=== PATIENT | female | born 1975 | race Caucasian/White ===

== ENCOUNTER 2020-01-19 01:45 | Emergency (ER) | payer SELFPAY ==
[~2020-01-19] VITALS: Ht 165.1 cm; Wt 52.3 kg
--- NOTE | 2020-01-19 02:34 | PHYS DOC ---
Past Medical History Past Medical History: Migraines, Other Additional Past Medical Histor: LEFT BREAST CA Past Surgical History: Appendectomy, Cholecystectomy, Hysterectomy Additional Past Surgical Histo: LEFT BREAST PARTIAL REMOVAL Smoking Status: Current Every Day Smoker Alcohol Use: Occasionally Additional Information: DRINKS WINE EVERY NIGHT ABOUT 2 GLASSES. General Adult EDM: Chief Complaint: ABDOMINAL PAIN HPI: HPI: Patient is a 44 year old female presents with a chief complaint of lower abdominal pain x5 days. Patient states over the last 3 days she has had diarrhea. Patient has a past surgical history of cholecystectomy appendectomy and hysterectomy. Patient has no associated nausea or vomiting. Review of Systems: Review of Systems: Constitutional: Denies fever or chills. [] Eyes: Denies change in visual acuity. [] HENT: Denies nasal congestion or sore throat. [] Respiratory: Denies cough or shortness of breath. [] Cardiovascular: Denies chest pain or edema. [] GI: Positive abdominal pain positive diarrhea : Denies dysuria. [] Musculoskeletal: Denies back pain or joint pain. [] Integument: Denies rash. [] Neurologic: Denies headache, focal weakness or sensory changes. [] Endocrine: Denies polyuria or polydipsia. [] Lymphatic: Denies swollen glands. [] Psychiatric: Denies depression or anxiety. [] Heart Score: Risk Factors: Risk Factors: DM, Current or recent (<one month) smoker, HTN, HLP, family his tory of CAD, obesity. Risk Scores: Score 0 - 3: 2.5% MACE over next 6 weeks - Discharge Home Score 4 - 6: 20.3% MACE over next 6 weeks - Admit for Clinical Observation Score 7 - 10: 72.7% MACE over next 6 weeks - Early Invasive Strategies Allergies: Allergies: Allergies Coded Allergies Type Severity Reaction Last Updated Verified fentanyl Allergy Intermediate Nausea and Vomiting 01/19/20 Yes morphine Allergy Intermediate Palpitations 01/19/20 Yes Penicillins Allergy Mild Swelling 01/19/20 Yes Sulfa (Sulfonamide Antibiotics) Allergy Mild Hives 01/19/20 Yes codeine Allergy Mild Hives 01/19/20 Yes Physical Exam: PE: Constitutional: Well developed, well nourished, no acute distress, non-toxic appearance. [] HENT: Normocephalic, atraumatic, bilateral external ears normal, oropharynx moist, no oral exudates, nose normal. [] Eyes: PERRLA, EOMI, conjunctiva normal, no discharge. [] Neck: Normal range of motion, no tenderness, supple, no stridor. [] Cardiovascular:Heart rate regular rhythm, no murmur [] Lungs & Thorax: Bilateral breath sounds clear to auscultation [] Abdomen: Bowel sounds normal, soft, no tenderness, no masses, no pulsatile masses. [] Skin: Warm, dry, no erythema, no rash. [] Back: No tenderness, no CVA tenderness. [] Extremities: No tenderness, no cyanosis, no clubbing, ROM intact, no edema. [] Neurologic: Alert and oriented X 3, normal motor function, normal sensory function, no focal deficits noted. [] Psychologic: Affect normal, judgement normal, mood normal. [] Current Patient Data: Vital Signs: Vital Signs Date Time Temp Pulse Resp B/P (MAP) Pulse Ox O2 Delivery O2 Flow Rate FiO2 01/19/20 01:55 98.0 77 16 134/61 (85) 99 Room Air 98.0 EKG: EKG: [] Radiology/Procedures: Radiology/Procedures: [] Impression: Diverticulosis without diverticulitis in the sigmoid colon. 3.7 cm cyst in the right adnexa probably ovarian with a small amount of free fluid in the right pelvic cul-de-sac. Course & Med Decision Making: Course & Med Decision Making Pertinent Labs and Imaging studies reviewed. (See chart for details) []Diverticulosis without diverticulitis in the sigmoid colon. 3.7 cm cyst in the right adnexa probably ovarian with a small amount of free fluid in the right pelvic cul-de-sac. Treated with toradol and dilaudid. Pain improved post treatment. Patient will be discharged home with norco. Patient to return to ER if symptoms persist or get worse. Dragon Disclaimer: Megathread Disclaimer: This electronic medical record was generated, in whole or in part, using a voice recognition dictation system. Departure Departure Impression: Primary Impression: Abdominal pain Additional Impressions: Ovarian cyst Diarrhea Disposition: HOME, SELF-CARE Condition: STABLE Referrals: NO PCP (PCP) LÓPEZ STEVENSON Jr, MD Patient Instructions: Abdominal Migraine, Diarrhea, Ovarian Cyst Scripts Hydrocodone/Apap 5-325 (NORCO 5-325 TABLET) 1 Each Tablet 1 TAB PO Q4-6HRS, #20 TAB Prov: KEISHA JIMENEZ DO 01/19/20 Justicifation of Admission Dx: Justifications for Admission: Justification of Admission Dx: N/A KEISHA JIMENEZ DO Jan 19, 2020 02:34
[2020-01-19 02:53] LABS: BILIRUBIN,URINE NEGATIVE (NEG); CLARITY,URINE CLEAR; COLOR,URINE YELLOW; NITRITE,URINE NEGATIVE (NEG); PH,URINE 6.5 (<5.0-8.0); PROTEIN,URINE NEGATIVE (NEG-TRACE); UROBILINOGEN,URINE 0.2 mg/dL (0.2 mg/dL)
[2020-01-19 02:53] LABS: BASO # 0.1 x10^3/uL (0.0-0.2); BASO % 1 % (0-3); EOS # 0.3 x10^3/uL (0.0-0.7); EOS % 4 % (0-3); HEMATOCRIT 54.9 % (36.0-47.0); HEMOGLOBIN 18.9 g/dL (12.0-15.5); LYMPH # 2.4 x10^3/uL (1.0-4.8); LYMPH % 32 % (24-48); MEAN CORPUSCULAR HEMOGLOBIN 33 pg (25-35); MEAN CORPUSCULAR HGB CONC 34 g/dL (31-37); MEAN CORPUSCULAR VOLUME 94 fL (79-100); MONO # 0.8 x10^3/uL (0.0-1.1); MONO % 10 % (0-9); NEUT # 4.1 x10^3/uL (1.8-7.7); NEUT % 54 % (31-73); PLATELET COUNT 232 x10^3/uL (140-400); RED BLOOD COUNT 5.82 x10^6/uL (3.50-5.40); RED CELL DISTRIBUTION WIDTH 14.6 % (11.5-14.5); WHITE BLOOD COUNT 7.7 x10^3/uL (4.0-11.0)
[2020-01-19 02:58] LABS: CALCIUM 9.6 mg/dL (8.5-10.1); CREATININE 0.8 mg/dL (0.6-1.0); GFR 78.7; POTASSIUM 3.5 mmol/L (3.5-5.1)
[2020-01-19 02:59] LABS: BACTERIA,URINE FEW /HPF (0-FEW); SQUAMOUS EPITHELIAL CELL,UR MANY /LPF; WBC,URINE OCC /HPF (0-4)
[2020-01-19] MEDS ORDERED: KETOROLAC 30 MG/ML VIAL. IVP ONE (03:00)
[2020-01-19 03:03] LABS: ALBUMIN 3.6 g/dL (3.4-5.0); ALBUMIN/GLOBULIN RATIO 1.1 (1.0-1.7); TOTAL BILIRUBIN 0.6 mg/dL (0.2-1.0); TOTAL PROTEIN 6.9 g/dL (6.4-8.2)
[2020-01-19] MEDS ORDERED: CONTRAST GIVEN. MC PRN (03:30)
[2020-01-19] MEDS ORDERED: IOHEXOL 300 MG/ML 100ML VIAL. IV ONE (04:00)
[2020-01-19 04:30] VITALS: BP 118/71
[2020-01-19] MEDS ORDERED: HYDROmorphone 2 MG/ML VIAL IVP ONE (04:30)
--- NOTE | 2020-01-19 04:33 | RAD ---
CT abdomen and pelvis with contrast: Reason for examination: Abdominal pain for 7 days. Diarrhea for 3 days. Helical images were obtained through the abdomen and pelvis with intravenous administration of 75 cc Omnipaque 300. Reconstruction was performed in sagittal and coronal planes. Exposure: One or more of the following individualized dose reduction techniques were utilized for this examination: 1. Automated exposure control 2. Adjustment of the mA and/or kV according to patient size 3. Use of iterative reconstruction technique. The lung bases are clear. The heart size is normal with no pericardial effusion. No focal abnormalities are seen at the liver, spleen, adrenal glands or pancreas. Gallbladder surgically absent. The abdominal aorta and inferior vena cava show no acute abnormalities. There is diverticulosis in the sigmoid colon without diverticulitis. There is no evidence of colitis. The appendix is surgically absent. The small intestinal tract shows no abnormal dilatation, wall thickening or obstruction. The stomach is not distended. The kidneys show no renal masses, renal calculi, hydronephrosis or evidence of obstructive uropathy. No abnormality seen at the bladder. The uterus appears to be absent but the right ovary appears to be present and contains a 3.7 cm cyst. There is a small amount of free fluid in the right pelvic cul-de-sac. No acute bony abnormalities are seen. IMPRESSION: Diverticulosis without diverticulitis in the sigmoid colon. 3.7 cm cyst in the right adnexa probably ovarian with a small amount of free fluid in the right pelvic cul-de-sac. Electronically signed by: Vi Adams MD (01/19/2020 4:30 AM) [facility]
[2020-01-19] MEDS ORDERED: HYDR-3164 PO (04:40)
== END 2020-01-19 04:58 | disposition home or self-care (01) ==
LOC: ER 01:45
DX: N83.291 Other ovarian cyst, right side (principal); R10.31 Right lower quadrant pain; R19.7 Diarrhea, unspecified; G43.909 Migraine, unspecified, not intractable, without status migrainosus; F17.200 Nicotine dependence, unspecified, uncomplicated; F10.10 Alcohol abuse, uncomplicated; Z90.89 Acquired absence of other organs; Z90.49 Acquired absence of other specified parts of digestive tract; Z90.710 Acquired absence of both cervix and uterus; Z98.890 Other specified postprocedural states; Z88.0 Allergy status to penicillin; Z88.2 Allergy status to sulfonamides; Z88.5 Allergy status to narcotic agent; Z88.6 Allergy status to analgesic agent; Z88.8 Allergy status to other drugs, medicaments and biological substances
CPT/HCPCS: 36415; 74177; 80053; 81001; 85025; 96374; 96375; 99285; J1170; J1885; Q9967

== ENCOUNTER 2020-05-05 11:14 | Emergency (ER) | payer SELFPAY ==
[~2020-05-05] VITALS: Ht 167.6 cm; Wt 54.8 kg
[~2020-05-05 11:14] MED LIST: HYDR-3164 PO
[2020-05-05] MEDS ORDERED: LIDOCAINE 2% JELLY 6ML IN APPLICATOR. MM ONE (11:45)
[2020-05-05] MEDS ORDERED: KETOROLAC 60 MG/2 ML VIAL. IM ONE (11:45)
[2020-05-05] MEDS ORDERED: methylPREDNISolone SOD SUCC PF 125 MG/2 ML VIAL. IM ONE (11:45)
[2020-05-05] MEDS ORDERED: CLINDAMYCIN HCL 150 MG CAPSULE. PO ONE (11:45)
[2020-05-05] MEDS ORDERED: NAPR-682 PO (13:18)
[2020-05-05] MEDS ORDERED: CLIN150C15 PO (13:18)
--- NOTE | 2020-05-05 13:19 | PHYS DOC ---
Past Medical History Past Medical History: Cancer, Migraines, Other Additional Past Medical Histor: LEFT BREAST CA Past Surgical History: Appendectomy, Cholecystectomy, Hysterectomy, Tonsillectomy Additional Past Surgical Histo: LEFT BREAST PARTIAL REMOVAL Smoking Status: Current Every Day Smoker Additional Information: 04/25 ppd Alcohol Use: None General Adult EDM: Chief Complaint: DENTAL PROBLEM HPI: HPI: Patient is a 44 year old female presented to ER for evaluation of left lower jaw swelling and pain for several days. Patient was seen by her dentist this morning, diagnosed with dental abscess, prescribed a Z-Eb because she is allergic to penicillin. Patient went home, noted that her swelling get worse so she called her dentist who told to come to ER for evaluation. Review of Systems: Review of Systems: Constitutional: Denies fever or chills. [] Eyes: Denies change in visual acuity. [] HENT: Denies nasal congestion or sore throat. positive for left lower jaw swelling and dental pain. Respiratory: Denies cough or shortness of breath. [] Cardiovascular: Denies chest pain or edema. [] GI: Denies abdominal pain, nausea, vomiting, bloody stools or diarrhea. [] : Denies dysuria. [] Musculoskeletal: Denies back pain or joint pain. [] Integument: Denies rash. [] Neurologic: Denies headache, focal weakness or sensory changes. [] Endocrine: Denies polyuria or polydipsia. [] Lymphatic: Denies swollen glands. [] Psychiatric: Denies depression or anxiety. [] Heart Score: Risk Factors: Risk Factors: DM, Current or recent (<one month) smoker, HTN, HLP, family history of CAD, obesity. Risk Scores: Score 0 - 3: 2.5% MACE over next 6 weeks - Discharge Home Score 4 - 6: 20.3% MACE over next 6 weeks - Admit for Clinical Observation Score 7 - 10: 72.7% MACE over next 6 weeks - Early Invasive Strategies Current Medications: Current Medications Medications (Trade) Dose Ordered Sig/Nick Start Time Stop Time Status Last Admin Dose Admin Clindamycin HCl (Cleocin) 300 mg 1X ONCE 05/05/20 11:45 05/05/20 11:48 DC 05/05/20 11:53 300 MG Ketorolac Tromethamine (Toradol Im) 60 mg 1X ONCE 05/05/20 11:45 05/05/20 11:48 DC 05/05/20 11:55 60 MG Lidocaine HCl (Glydo (Lidocaine) Jelly) 1 wyatt 1X ONCE 05/05/20 11:45 05/05/20 11:48 DC 05/05/20 11:58 1 WYATT Methylprednisolone Sodium Succinate (SOLU-Medrol 125MG VIAL) 125 mg 1X ONCE 05/05/20 11:45 05/05/20 11:48 DC 05/05/20 11:58 125 MG Allergies: Allergies: Allergies Coded Allergies Type Severity Reaction Last Updated Verified Penicillins Allergy Intermediate Swelling 05/05/20 Yes Sulfa (Sulfonamide Antibiotics) Allergy Intermediate Hives 05/05/20 Yes codeine Allergy Intermediate Hives 05/05/20 Yes fentanyl Allergy Intermediate Nausea and Vomiting 05/05/20 Yes morphine Allergy Intermediate Palpitations 05/05/20 Yes Physical Exam: PE: Constitutional: Well developed, well nourished, no acute distress, non-toxic appearance. [] HENT: Normocephalic, atraumatic, bilateral external ears normal, oropharynx moist, no oral exudates, nose normal. LEFT LOWER JAW SWELLING, THERE IS DENTAL DECAY ON LEFT LOWER JAW AREA, MISSING LEFT LOWER 2ND MOLAR. There is tender indurated area at the gumline of 1st molar, left lower. NO TRISMUS. PATIENT CAN SWALLOW WITHOUT ANY PROBLEM, TALKING WITHOUT ANY PROBLEM. Eyes: PERRLA, EOMI, conjunctiva normal, no discharge. [] Neck: Normal range of motion, no tenderness, supple, no stridor. [] Cardiovascular:Heart rate regular rhythm, no murmur [] Lungs & Thorax: Bilateral breath sounds clear to auscultation [] Abdomen: Bowel sounds normal, soft, no tenderness, no masses, no pulsatile masses. [] Skin: Warm, dry, no erythema, no rash. [] Back: No tenderness, no CVA tenderness. [] Extremities: No tenderness, no cyanosis, no clubbing, ROM intact, no edema. [] Neurologic: Alert and oriented X 3, normal motor function, normal sensory function, no focal deficits noted. [] Psychologic: Affect normal, judgement normal, mood normal. [] Current Patient Data: Vital Signs: Vital Signs Date Time Temp Pulse Resp B/P (MAP) Pulse Ox O2 Delivery O2 Flow Rate FiO2 05/05/20 11:23 98.0 83 18 144/75 (98) 99 Room Air 98.0 EKG: EKG: [] Radiology/Procedures: Radiology/Procedures: [] Course & Med Decision Making: Course & Med Decision Making Pertinent Labs and Imaging studies reviewed. (See chart for details) The left lower gumline area on the left lower 1st molar was anesthesized with lidocaine jelly and injected 1% plain lidocaine 2 ml, an 18 gauge needle was used to aspirate small amount of whitish purulent material. Patient tolerated procedure well. she will be discharged home with clindamycin, anaprox, follow up with her dentist this week. Dragon Disclaimer: VeedMe Disclaimer: This electronic medical record was generated, in whole or in part, using a voice recognition dictation system. Departure Departure Impression: Primary Impression: Dental abscess Disposition: 01 DC HOME SELF CARE/HOMELESS Condition: IMPROVED Referrals: NO PCP (PCP) Please follow up with your dentist as scheduled Patient Instructions: Dental Abscess Additional Instructions: Thank you for visiting our Emergency Department. We appreciate you trusting us with your care. If any additional problems come up don't hesitate to return to visit us. Please follow up with your primary care provider so they can plan additional care if needed and know about the problem that you had. If symptoms worsen come back to the Emergency Department. Any concerning symptoms that start such as chest pain, shortness of air, weakness or numbness on one side of the body, running high fevers or any other concerning symptoms return to the ER. TAKE 25 MG OF BENADRYL EVERY 6 HOURS NEEDED FOR FACIAL SWELLING. Scripts Naproxen Sodium (ANAPROX DS) 550 Mg Tablet 1 TAB PO BID PRN for PAIN for 15 Days, #30 TAB 0 Refills Prov: BRAD FARIAS DO 05/05/20 Clindamycin Hcl (CLINDAMYCIN HCL) 150 Mg Capsule 300 MG PO QID for 7 Days, #56 CAP Prov: BRAD FARIAS DO 05/05/20 BRAD FARIAS DO May 05, 2020 13:19
[2020-05-05 13:31] VITALS: BP 137/58
== END 2020-05-05 13:31 | disposition home or self-care (01) ==
LOC: ER 11:14
DX: K04.7 Periapical abscess without sinus (principal); R68.84 Jaw pain; R60.0 Localized edema; G43.909 Migraine, unspecified, not intractable, without status migrainosus; F17.200 Nicotine dependence, unspecified, uncomplicated; Z85.3 Personal history of malignant neoplasm of breast; Z90.89 Acquired absence of other organs; Z90.710 Acquired absence of both cervix and uterus; Z90.49 Acquired absence of other specified parts of digestive tract; Z98.890 Other specified postprocedural states; Z88.0 Allergy status to penicillin; Z88.2 Allergy status to sulfonamides; Z88.5 Allergy status to narcotic agent; Z88.6 Allergy status to analgesic agent; Z88.8 Allergy status to other drugs, medicaments and biological substances
CPT/HCPCS: 41800; 96372; 99284; J1885; J2930

== ENCOUNTER 2021-03-25 16:16 | Emergency (ER) | payer OTHER ==
[~2021-03-25] VITALS: Ht 160 cm; Wt 55.7 kg
[~2021-03-25 16:16] MED LIST changes: +CLIN150C16 PO; +NAPR-682 PO
[2021-03-25 17:42] VITALS: BP 147/64
[2021-03-25 18:12] LABS: BASO # 0.1 x10^3/uL (0.0-0.2); BASO % 1 % (0-3); EOS # 0.2 x10^3/uL (0.0-0.7); EOS % 3 % (0-3); HEMATOCRIT 49.4 % (36.0-47.0); HEMOGLOBIN 16.8 g/dL (12.0-15.5); LYMPH % 27 % (24-48); MEAN CORPUSCULAR HEMOGLOBIN 33 pg (25-35); MEAN CORPUSCULAR HGB CONC 34 g/dL (31-37); MEAN CORPUSCULAR VOLUME 96 fL (79-100); MONO # 0.7 x10^3/uL (0.0-1.1); MONO % 10 % (0-9); NEUT # 4.3 x10^3/uL (1.8-7.7); NEUT % 59 % (31-73); PLATELET COUNT 243 x10^3/uL (140-400); RED BLOOD COUNT 5.14 x10^6/uL (3.50-5.40); RED CELL DISTRIBUTION WIDTH 14.1 % (11.5-14.5); WHITE BLOOD COUNT 7.4 x10^3/uL (4.0-11.0)
[2021-03-25 18:22] LABS: CALCIUM 8.6 mg/dL (8.5-10.1); CREATININE 0.8 mg/dL (0.6-1.0); GFR 78.3; POTASSIUM 3.7 mmol/L (3.5-5.1)
[2021-03-25 18:25] LABS: BILIRUBIN,URINE NEGATIVE (NEG); CLARITY,URINE CLEAR; COLOR,URINE YELLOW; NITRITE,URINE NEGATIVE (NEG); PH,URINE 6.5 (<5.0-8.0); PROTEIN,URINE NEGATIVE (NEG-TRACE); UROBILINOGEN,URINE 0.2 mg/dL (0.2 mg/dL)
[2021-03-25 18:28] LABS: ALBUMIN 3.9 g/dL (3.4-5.0); ALBUMIN/GLOBULIN RATIO 1.3 (1.0-1.7); TOTAL BILIRUBIN 0.6 mg/dL (0.2-1.0); TOTAL PROTEIN 6.8 g/dL (6.4-8.2)
[2021-03-25 18:30] LABS: BACTERIA,URINE FEW /HPF (0-FEW); RBC,URINE 0 /HPF (0-2); WBC,URINE OCC /HPF (0-4)
--- NOTE | 2021-03-25 18:44 | PHYS DOC ---
Past Medical History Past Medical History: Cancer, Migraines, Other Additional Past Medical Histor: LEFT BREAST CA Past Surgical History: Appendectomy, Cholecystectomy, Hysterectomy, Tonsillectomy Additional Past Surgical Histo: LEFT BREAST PARTIAL REMOVAL Smoking Status: Current Every Day Smoker Alcohol Use: Heavy Additional Information: DRINKS WINE AT NIGHT Drug Use: None General Adult EDM: Chief Complaint: FLU SYMPTOM HPI: HPI: Patient is a 45-year-old female that presents today with epigastric pain. Patient states over the last 2 days her pain in the epigastric area has become increasing she said today that she has had multiple bouts of nausea and vomiting she has been unable to keep fluids down. Patient states she called her primary care physician her primary Care physician advised her to come to the emergency department for further evaluation. Patient states that over the last 2 days she has had some chills associated with the epigastric pain, patient denies shortness of air or diaphoresis. Review of Systems: Review of Systems: Constitutional: Denies fever or chills. [] Eyes: Denies change in visual acuity. [] HENT: Denies nasal congestion or sore throat. [] Respiratory: Denies cough or shortness of breath. [] Cardiovascular: Denies chest pain or edema. [] GI: Denies abdominal pain, nausea, vomiting, bloody stools or diarrhea. [] : Denies dysuria. [] Musculoskeletal: Denies back pain or joint pain. [] Integument: Denies rash. [] Neurologic: Denies headache, focal weakness or sensory changes. [] Endocrine: Denies polyuria or polydipsia. [] Lymphatic: Denies swollen glands. [] Psychiatric: Denies depression or anxiety. [] Heart Score: C/O Chest Pain: N/A Risk Factors: Risk Factors: DM, Current or recent (<one month) smoker, HTN, HLP, family history of CAD, obesity. Risk Scores: Score 0 - 3: 2.5% MACE over next 6 weeks - Discharge Home Score 4 - 6: 20.3% MACE over next 6 weeks - Admit for Clinical Observation Score 7 - 10: 72.7% MACE over next 6 weeks - Early Invasive Strategies Current Medications: Current Medications Medications (Trade) Dose Ordered Sig/Nick Start Time Stop Time Status Last Admin Dose Admin Iohexol (Omnipaque 300 Mg/ml) 75 ml 1X ONCE 03/25/21 18:45 12/2/21 18:46 UNV Allergies: Allergies: Allergies Coded Allergies Type Severity Reaction Last Updated Verified Penicillins Allergy Intermediate Swelling 05/05/20 Yes Sulfa (Sulfonamide Antibiotics) Allergy Intermediate Hives 05/05/20 Yes codeine Allergy Intermediate Hives 05/05/20 Yes fentanyl Allergy Intermediate Nausea and Vomiting 05/05/20 Yes morphine Allergy Intermediate Palpitations 05/05/20 Yes Physical Exam: PE: Constitutional: Well developed, well nourished, no acute distress, non-toxic appearance. [] HENT: Normocephalic, atraumatic, bilateral external ears normal, oropharynx moist, no oral exudates, nose normal. [] Eyes: PERRLA, EOMI, conjunctiva normal, no discharge. [] Neck: Normal range of motion, no tenderness, supple, no stridor. [] Cardiovascular:Heart rate regular rhythm, no murmur [] Lungs & Thorax: Bilateral breath sounds clear to auscultation [] Abdomen: Bowel sounds normal, soft, no tenderness, no masses, no pulsatile masses. [] Skin: Warm, dry, no erythema, no rash. [] Back: No tenderness, no CVA tenderness. [] Extremities: No tenderness, no cyanosis, no clubbing, ROM intact, no edema. [] Neurologic: Alert and oriented X 3, normal motor function, normal sensory function, no focal deficits noted. [] Psychologic: Affect normal, judgement normal, mood normal. [] Current Patient Data: Labs: Laboratory Tests Test 03/25/21 18:00 03/25/21 18:20 White Blood Count 7.4 x10^3/uL (4.0-11.0) Red Blood Count 5.14 x10^6/uL (3.50-5.40) Hemoglobin 16.8 g/dL (12.0-15.5) H Hematocrit 49.4 % (36.0-47.0) H Mean Corpuscular Volume 96 fL (79-100) Mean Corpuscular Hemoglobin 33 pg (25-35) Mean Corpuscular Hemoglobin Concent 34 g/dL (31-37) Red Cell Distribution Width 14.1 % (11.5-14.5) Platelet Count 243 x10^3/uL (140-400) Neutrophils (%) (Auto) 59 % (31-73) Lymphocytes (%) (Auto) 27 % (24-48) Monocytes (%) (Auto) 10 % (0-9) H Eosinophils (%) (Auto) 3 % (0-3) Basophils (%) (Auto) 1 % (0-3) Neutrophils # (Auto) 4.3 x10^3/uL (1.8-7.7) Lymphocytes # (Auto) 2.0 x10^3/uL (1.0-4.8) Monocytes # (Auto) 0.7 x10^3/uL (0.0-1.1) Eosinophils # (Auto) 0.2 x10^3/uL (0.0-0.7) Basophils # (Auto) 0.1 x10^3/uL (0.0-0.2) Sodium Level 141 mmol/L (136-145) Potassium Level 3.7 mmol/L (3.5-5.1) Chloride Level 106 mmol/L (98-107) Carbon Dioxide Level 25 mmol/L (21-32) Anion Gap 10 (6-14) Blood Urea Nitrogen 10 mg/dL (7-20) Creatinine 0.8 mg/dL (0.6-1.0) Estimated GFR (Cockcroft-Gault) 78.3 BUN/Creatinine Ratio 13 (6-20) Glucose Level 90 mg/dL (70-99) Calcium Level 8.6 mg/dL (8.5-10.1) Total Bilirubin 0.6 mg/dL (0.2-1.0) Aspartate Amino Transferase (AST) 20 U/L (15-37) Alanine Aminotransferase (ALT) 29 U/L (14-59) Alkaline Phosphatase 67 U/L (46-116) Total Protein 6.8 g/dL (6.4-8.2) Albumin 3.9 g/dL (3.4-5.0) Albumin/Globulin Ratio 1.3 (1.0-1.7) Lipase 66 U/L (73-393) L Urine Collection Type Unknown Urine Color Yellow Urine Clarity Clear Urine pH 6.5 (<5.0-8.0) Urine Specific [place] 1.010 (1.000-1.030) Urine Protein Negative mg/dL (NEG-TRACE) Urine Glucose (UA) Negative mg/dL (NEG) Urine Ketones (Stick) Trace mg/dL (NEG) Urine Blood Negative (NEG) Urine Nitrite Negative (NEG) Urine Bilirubin Negative (NEG) Urine Urobilinogen Dipstick 0.2 mg/dL (0.2 mg/dL) Urine Leukocyte Esterase Negative (NEG) Urine RBC 0 /HPF (0-2) Urine WBC Occ /HPF (0-4) Urine Squamous Epithelial Cells Mod /LPF Urine Bacteria Few /HPF (0-FEW) Laboratory Tests 03/25/21 18:00 Laboratory Tests 03/25/21 18:00 Vital Signs: Vital Signs Date Time Temp Pulse Resp B/P (MAP) Pulse Ox O2 Delivery O2 Flow Rate FiO2 03/25/21 17:42 98.1 70 22 147/64 (91) 98 Room Air 98.1 Vital Signs Date Time Temp Pulse Resp B/P (MAP) Pulse Ox O2 Delivery O2 Flow Rate FiO2 03/25/21 17:42 98.1 70 22 147/64 (91) 98 Room Air 98.1 EKG: EKG: First EKG done at [address] Kovacs at 1633 shows sinus rhythm no STEMI rate of 76 with a IA interval of 144 ms with a QT interval of 374 ms Second EKG done was at [address] Kovacs at 1747 shows sinus rhythm with a rate of 67 no STEMI with a IA interval of 108 ms with a QT interval of 392 ms [] Radiology/Procedures: Radiology/Procedures: [REASON: upper abdominal pain PROCEDURE: CT ABD PELV W/ IV CONTRST ONLY CT ABDOMEN+PELVIS W History: upper abdominal pain Comparison: 01/19/2020. Technique: After administration of intravenous contrast, helical CT of the abdomen and pelvis was performed from the lung bases through the ischial tuberosities. Coronal and sagittal reconstructions were obtained. One or more of the following dose reduction techniques were utilized: Automated exposure control (AEC), Adjustment of mA and/or kV according to patient size, Use of iterative reconstruction technique such as ASiR, CT scan done according to ALARA and image gently/image wisely Abdomen Findings: The visualized lung bases are clear. The liver, pancreas, spleen, and bilateral adrenal glands are normal. Chol ecystectomy. Symmetric renal enhancement. There is no focal renal mass. There is no hydronephrosis. Stomach is decompressed and poorly evaluated The visualized loops of small bowel are normal. The visualized loops of large bowel are normal. There is no evidence of bowel obstruction. Appendectomy. There is no free fluid. There is no mesenteric or retroperitoneal adenopathy. The abdominal aorta is normal in caliber. Mild aortoiliac atherosclerotic disease. Pelvis Findings: Urinary bladder is decompressed. Hysterectomy. No pelvic free fluid. There is no pelvic or inguinal adenopathy. There is no acute bony abnormality. IMPRESSION: 1. No acute findings. 2. Cholecystectomy. Appendectomy. Hysterectomy. Electronically signed by: Eric Cason MD (03/25/2021 7:08 PM) [facility] ] Course & Med Decision Making: Course & Med Decision Making Pertinent Labs and Imaging studies reviewed. (See chart for details) 1939 spoke to patient regarding lab and radiology results, patient states her nausea has improved continues to have some pain. Will offer a GI cocktail to help with pain relief. Heart rate currently is 75, sats are 99% Dragon Disclaimer: Dragon Disclaimer: This electronic medical record was generated, in whole or in part, using a voice recognition dictation system. Departure Departure Impression: Primary Impression: Abdominal pain Qualified Codes: R10.13 - Epigastric pain Additional Impression: GERD (gastroesophageal reflux disease) Qualified Codes: K21.9 - Gastro-esophageal reflux disease without esophagitis Disposition: HOME / SELF CARE / HOMELESS Condition: STABLE Referrals: CHONG WOLFF APRN (PCP) Patient Instructions: Abdominal Pain, Diet for Gastroesophageal Reflux Disease, Adult Additional Instructions: Avoid alcohol, cigarette smoke, caffeine, and spicy foods to help with abdominal pain Take Pepcid 20 mg twice daily for 14 days Follow-up with your primary care physician tomorrow by phone to get an appointment next week for further management of your abdominal pain Return to the emergency department for increased abdominal pain, vomiting blood, inability to keep p.o. fluids down, or any other abdominal concerns Zofran 4 mg take 1 tablet every 6 hours as needed for nausea, wait 30 minutes after taking before trying any p.o. fluids Scripts Ondansetron Hcl (ZOFRAN) 4 Mg Tablet 1 TAB PO PRN Q6HRS PRN for NAUSEA, #20 TAB Prov: MARJORIE DANGELO BROOMCORN SCRAPER 03/25/21 Famotidine (PEPCID) 20 Mg Tablet 20 MG PO BID for 14 Days, #28 TAB Prov: MARJORIE DANGELO BROOMCORN SCRAPER 03/25/21 MARJORIE DANGELO BROOMCORN SCRAPER Mar 25, 2021 18:44
[2021-03-25] MEDS ORDERED: CONTRAST GIVEN. MC PRN (18:45)
[2021-03-25] MEDS ORDERED: IOHEXOL 300 MG/ML 100ML VIAL. IV ONE (18:45)
--- NOTE | 2021-03-25 19:10 | RAD ---
CT ABDOMEN+PELVIS W History: upper abdominal pain Comparison: 01/19/2020. Technique: After administration of intravenous contrast, helical CT of the abdomen and pelvis was per formed from the lung bases through the ischial tuberosities. Coronal and sagittal reconstructions wer e obtained. One or more of the following dose reduction techniques were utilized: Automated exposure control (AEC), Adjustment of mA and/or kV according to patient size, Use of iterative reconstruction technique such as ASiR, CT scan done according to ALARA and image gently/image wisely Abdomen Findings: The visualized lung bases are clear. The liver, pancreas, spleen, and bilateral adrenal glands are normal. Cholecystectomy. Symmetric renal enhancement. There is no focal renal mass. There is no hydronephrosis. Stomach is decompressed and poorly evaluated The visualized loops of small bowel are normal. The visu alized loops of large bowel are normal. There is no evidence of bowel obstruction. Appendectomy. There is no free fluid. There is no mesenteric or retroperitoneal adenopathy. The abdominal aorta is normal in caliber. Mild aortoiliac atherosclerotic disease. Pelvis Findings: Urinary bladder is decompressed. Hysterectomy. No pelvic free fluid. There is no pelvic or inguinal a denopathy. There is no acute bony abnormality. IMPRESSION: 1. No acute findings. 2. Cholecystectomy. Appendectomy. Hysterectomy. Electronically signed by: Eric Cason MD (03/25/2021 7:08 PM) [facility]
[2021-03-25] MEDS ORDERED: LIDO:MAALOX 1:1 20 ML SINGLE DOSE. SWSW ONE (19:45)
[2021-03-25] MEDS ORDERED: FAMO-63 PO (20:25)
[2021-03-25] MEDS ORDERED: ONDA4TAB7 PO (20:25)
--- NOTE | 2021-03-26 04:38 | EKG ---
[facility] [address] [place] [address] Test Date: 2021-03-25 Test Time: 16:29:17 Pat Name: CHIP ALARCON Department: Room: Gender: F Administrative Assistant: - : 1975 Requested By: MARJORIE DANGELO Order Number: [id number] Reading MD: Brent Yancey MD Measurements Intervals Elsie Rate: 76 P: 47 MN: 114 QRS: 84 QRSD: 80 T: 24 QT: 374 QTc: 420 Interpretive Statements SINUS RHYTHM NON-SPECIFIC ST/T CHANGES Electronically Signed On 03-28-2021 20:49:56 BAT LATHE OPERATOR by Brent Yancey MD
== END 2021-03-25 21:00 | disposition home or self-care (01) ==
LOC: ER 16:16
DX: K21.9 Gastro-esophageal reflux disease without esophagitis (principal); G43.909 Migraine, unspecified, not intractable, without status migrainosus; F17.200 Nicotine dependence, unspecified, uncomplicated; Z90.89 Acquired absence of other organs; Z90.49 Acquired absence of other specified parts of digestive tract; Z90.710 Acquired absence of both cervix and uterus; F10.20 Alcohol dependence, uncomplicated; Y90.9 Presence of alcohol in blood, level not specified; Z88.0 Allergy status to penicillin; Z88.2 Allergy status to sulfonamides; Z88.4 Allergy status to anesthetic agent; Z88.5 Allergy status to narcotic agent
CPT/HCPCS: 36415; 74177; 80053; 81001; 83690; 85025; 99285; Q9967; 93005

== ENCOUNTER → 2021-08-20 | Outpatient (CLI) | payer OTHER ==
[~2021-08-20] MED LIST changes: +FAMO-63 PO; +ONDA4TAB7 PO
--- NOTE | 2021-08-23 09:17 | CARD ---
MR#: [id number] Date of Study: 08/20/2021 Ordering Physician: KEN VARGHESE, Referring Physician: KEN VARGHESE, Tech: JOSELINE RAVI RD,T APPROVED REPORT EXAM: Two-dimensional and M-mode echocardiogram with Doppler and color Doppler. Other Information Quality : GoodHR: 70bpm Rhythm : NSR INDICATION Dyspnea 2D DIMENSIONS Left Atrium(2D)2.8 (1.6-4.0cm)IVSd0.6 (0.7-1.1cm) Aortic Root(2D)2.3 (2.0-3.7cm)LVDd4.0 (3.9-5.9cm) LVOT Diameter1.7 (1.8-2.4cm)PWd0.7 (0.7-1.1cm) LVDs3.1 (2.5-4.0cm)FS (%) 22.4 % SV31.2 mlLVEF(%)45.7 (>50%) Aortic Valve AoV Peak Casper.155.2cm/Rachele Peak GR.9.6mmHg Mitral Valve MV E Stbpxgkw64.9cm/sMV DECEL BRAM193hn MV A Fiirhpel95.8cm/sMV OGT69pt E/A Ratio2.1MVA (PHT)3.81cm2 TDI E/Lateral E'5.6E/Medial E'5.4 Tricuspid Valve TR P. [id number]/sRAP VSEQDSZT6xsVe TR Peak Gr.47ksMyENRE47bbLv LEFT VENTRICLE The left ventricle is normal size. There is normal left ventricular wall thickness. Left ventricular systolic function is normal. The ejection fraction is 55-60%. No regional wall motion abnormalities n oted. No left ventricle thrombus noted on this study. There is no ventricular septal defect visualize d. There is no left ventricular aneurysm. There is no mass noted in the left ventricle. RIGHT VENTRICLE The right ventricle is normal size. There is normal right ventricular wall thickness. The right ventr icular systolic function is normal. ATRIA The left atrium size is normal. The right atrium size is normal. The interatrial septum is intact wit h no evidence for an atrial septal defect or patent foramen ovale as noted on 2-D or Doppler imaging. AORTIC VALVE The aortic valve is normal in structure and function. No aortic regurgitation is present. There is no aortic valvular stenosis. There is no aortic valvular vegetation. MITRAL VALVE The mitral valve is normal in structure and function. There is no evidence of mitral valve prolapse. There is no mitral valve stenosis. Doppler and Color Flow revealed trace mitral regurgitation. TRICUSPID VALVE The tricuspid valve is normal in structure and function. Doppler and Color Flow revealed mild tricusp id regurgitation. The pulmonary artery systolic pressure is estimated at 22 mmHg. There is no tricusp id valve prolapse or vegetation. There is no tricuspid valve stenosis. PULMONIC VALVE The pulmonary valve is normal in structure and function. There is no pulmonic valvular regurgitation. There is no pulmonic valvular stenosis. GREAT VESSELS The aortic root is normal in size. The ascending aorta is normal in size. The pulmonary artery is nor mal. The IVC is normal in size and collapses >50% with inspiration. PERICARDIAL EFFUSION There is no pleural effusion. There is no evidence of significant pericardial effusion. Critical Notification Critical Value: No <Conclusion> Left ventricular systolic function is normal. The ejection fraction is 55-60%. No regional wall motion abnormalities noted. Trace mitral regurgitation. There is no evidence of significant pericardial effusion. Signed by : Ken Varghese, Electronically Approved : 08/23/2021 09:17:29
== END ==
LOC: ECHO 13:43
PROVIDERS: ATTEND Internal Medicine Cardiovascular Disease
DX: I07.1 Rheumatic tricuspid insufficiency (principal); R42 Dizziness and giddiness
CPT/HCPCS: 93306; C8929